=== PATIENT | female | born 1950 | race Caucasian/White ===

== ENCOUNTER 2016-09-22 02:49 | Inpatient (IN) | payer OTHER ==
[~2016-09-22] VITALS: Ht 160 cm; Wt 58.2 kg
[2016-09-22] MEDS ORDERED: VENLAFAXINE HC150 M1 PO (02:51)
[2016-09-22] MEDS ORDERED: ATORVASTATIN CA40 MG PO (02:52)
[2016-09-22] MEDS ORDERED: VERAPAMIL HCL240 MG PO (02:52)
[2016-09-22] MEDS ORDERED: MONTELUKAST SOD10 MG PO (02:52)
[2016-09-22] MEDS ORDERED: BACLOFEN10 MG PO (02:52)
[2016-09-22 03:22] LABS: BASOPHIL COUNT 0.1 K/uL (0-0.1); EOSINOPHIL (%) 1.9 % (0-5); EOSINOPHIL COUNT 0.2 K/uL (0-0.3); IMMATURE GRANULOCYTE (%) 0.4 % (0.0-0.7); INSTRUMENT ABS NEUTROPHIL CT 5.1 K/uL; LYMPHOCYTE COUNT 1.8 K/uL (1.0-2.8); MCH 28.8 PG (29.0-34.0); MCHC 32.1 G/DL (30.0-36.0); MCV 89.9 FL (83-99); MEAN PLAT.VOLUME 9.4 uM^3 (9.5-12.4); MONOCYTE (%) 8.5 % (3-12); MONOCYTE COUNT 0.7 K/uL (0-0.8); NEUTROPHIL (%) 65.7 % (45-76); NEUTROPHIL COUNT 5.1 K/uL (1.8-6.4); PLATELET COUNT 326 K/uL (156-360); RBC DIS.WIDTH-SD 42.7 % (39-53); RED BLOOD COUNT 4.34 M/uL (3.80-5.20); WHITE BLOOD COUNT 7.7 K/uL (4.1-10.2)
[2016-09-22 03:37] LABS: CHLORIDE 107 mEq/L (99-109); POTASSIUM 4.7 mEq/L (3.7-5.4); SODIUM 138 mEq/L (136-147)
[2016-09-22 03:39] LABS: GLUCOSE 106 mg/dL (70-99)
[2016-09-22 03:40] LABS: ANION GAP 9 MEQ/L (2-14)
[2016-09-22 03:42] LABS: GFR ESTIMATE (CALCULATED) > 59 mL/min/
[2016-09-22 03:43] LABS: UREA NITROGEN (BUN) 19 mg/dL (9-23)
[2016-09-22 07:36] LABS: ADD MIUA? YES; BILIRUBIN NEGATIVE; BLOOD SMALL; COLOR YELLOW ((YELLOW)); GLUCOSE (STRIP) NEGATIVE; KETONES NEGATIVE; LEUKOCYTES NEGATIVE; NITRITE POSITIVE; PROTEIN (STRIP) NEGATIVE; SPECIFIC GRAVITY 1.004 (1.000-1.030); UROBILINOGEN 0.2 MG/DL (0.2-1.0)
[2016-09-22] MEDS ORDERED: AMPHETAMINE SAL20 MG PO (07:44)
[2016-09-22] MEDS ORDERED: PROTONIX40 MG PO (07:45)
[2016-09-22] MEDS ORDERED: OXYCODONE-APAP1 EACH PO (07:45)
[2016-09-22 07:46] LABS: BACTERIA 1+ /HPF; EPITHELIAL CELLS RARE /HPF; MUCUS NONE SEEN /LPF; RED BLOOD CELLS 0-5 /HPF (0-5); UCUL ADDED? NO; WHITE BLOOD CELLS 0-5 /HPF (0-5)
[2016-09-22 08:36] VITALS: BP 113/55
[2016-09-22 11:45] VITALS: BP 101/55
[2016-09-22 16:39] VITALS: BP 108/51
[2016-09-22 21:49] VITALS: BP 119/57
[2016-09-22 23:26] VITALS: BP 121/58
[2016-09-23 04:24] VITALS: BP 145/65
[2016-09-23 06:30] LABS: HEMATOCRIT 32.8 % (36.0-46.0); MCH 29.4 PG (29.0-34.0); MCV 91.9 FL (83-99); MEAN PLAT.VOLUME 9.8 uM^3 (9.5-12.4); PLATELET COUNT 245 K/uL (156-360); RBC DIS.WIDTH-CV 13.2 % (11.8-14.6); RBC DIS.WIDTH-SD 44.6 % (39-53); RED BLOOD COUNT 3.57 M/uL (3.80-5.20); WHITE BLOOD COUNT 6.8 K/uL (4.1-10.2)
[2016-09-23 06:45] LABS: ALKALINE PHOSPHATASE 83 IU/L (3-129); ANION GAP 8 MEQ/L (2-14); CHLORIDE 102 MEQ/L (99-109); GFR ESTIMATE (CALCULATED) > 59 mL/min/; GLUCOSE 136 mg/dL (70-99); POTASSIUM 4.3 MEQ/L (3.7-5.4); SAMPLE HEMOLYSIS CHECK 0; SAMPLE ICTERIC CHECK 0; SAMPLE LIPEMIA CHECK 0; SODIUM 136 MEQ/L (136-147); TOTAL BILIRUBIN 0.5 MG/DL (0.0-1.0); UREA NITROGEN (BUN) 14 mg/dL (9-23)
[2016-09-23 08:10] VITALS: BP 126/65
[2016-09-23 12:20] VITALS: BP 116/59
[2016-09-23 16:35] VITALS: BP 117/58
[2016-09-23 20:13] VITALS: BP 139/62
[2016-09-24 00:14] VITALS: BP 117/57
[2016-09-24 04:25] VITALS: BP 117/56
[2016-09-24 05:29] LABS: HEMATOCRIT 32.6 % (36.0-46.0); MCV 90.1 FL (83-99)
[2016-09-24 08:12] VITALS: BP 120/58
[2016-09-24 16:00] VITALS: BP 132/57
[2016-09-24 23:59] VITALS: BP 119/57
[2016-09-25 01:37] VITALS: BP 120/72
[2016-09-25 08:39] VITALS: BP 141/66
[2016-09-25 17:52] VITALS: BP 106/53
[2016-09-25 23:43] VITALS: BP 106/55
[2016-09-26 07:35] VITALS: BP 120/59
[2016-09-26] MEDS ORDERED: ZOLPIDEM TARTRAT5 MG PO (12:14)
[2016-09-26] MEDS ORDERED: NICOTINE PATCH1 EAC2 TD (12:14)
[2016-09-26] MEDS ORDERED: THERAGRAN1 TABLET PO (12:14)
[2016-09-26] MEDS ORDERED: VITAMIN D-32000 UNI2 PO (12:14)
[2016-09-26] MEDS ORDERED: BENADRYL25 MG PO (12:14)
[2016-09-26] MEDS ORDERED: OXYCODONE-APAP1 EACH PO (12:15)
[2016-09-26] MEDS ORDERED: ENULOSE10 GM/15 M PO (12:19)
[2016-09-26] MEDS ORDERED: DOCUSATE SODIU100 MG PO (12:19)
[2016-09-26 15:52] VITALS: BP 133/73
== END 2016-09-26 17:35 | DRG 563 ==
LOC: EME 02:49 → 3EAST 06:10 → EDOF 06:10 → 3EAST 08:11
PROVIDERS: Emergency Medicine; Internal Medicine; Orthopaedic Surgery Sports Medicine
DX: S82.871A Displaced pilon fracture of right tibia, initial encounter for closed fracture (principal); S82.461A Displaced segmental fracture of shaft of right fibula, initial encounter for closed fracture; J44.9 Chronic obstructive pulmonary disease, unspecified; G35 Multiple sclerosis; W01.0XXA Fall on same level from slipping, tripping and stumbling without subsequent striking against object, initial encounter; Y92.012 Bathroom of single-family (private) house as the place of occurrence of the external cause; I10 Essential (primary) hypertension; J32.9 Chronic sinusitis, unspecified; R53.1 Weakness; M25.551 Pain in right hip; F17.218 Nicotine dependence, cigarettes, with other nicotine-induced disorders; J30.9 Allergic rhinitis, unspecified; K21.9 Gastro-esophageal reflux disease without esophagitis; E53.8 Deficiency of other specified B group vitamins; F41.9 Anxiety disorder, unspecified; F32.9 Major depressive disorder, single episode, unspecified; G89.29 Other chronic pain; M54.5 Low back pain; M19.90 Unspecified osteoarthritis, unspecified site; N39.0 Urinary tract infection, site not specified; M81.0 Age-related osteoporosis without current pathological fracture; S49.91XA Unspecified injury of right shoulder and upper arm, initial encounter; R00.0 Tachycardia, unspecified
CPT/HCPCS: 71010; 73522; 73590; 73600; 73610; 73700; 76000; 80048; 80053; 81003; 82306; 85014; 85018; 85025; 85027; 86900; 86901; 93005; 97530 GP; 99281; 99285; J0690; J1650; J2250; J2270; J2405; J3010; J7030

== ENCOUNTER 2017-08-12 16:15 | Inpatient (IN) | payer OTHER ==
[~2017-08-12] VITALS: Ht 157.5 cm; Wt 57.2 kg
[~2017-08-12 16:15] MED LIST: AMPHETAMINE SAL20 MG PO; ATORVASTATIN CA40 MG PO; BACLOFEN10 MG PO; BENADRYL25 MG PO; DOCUSATE SODIU100 MG PO; ENULOSE10 GM/15 M PO; MONTELUKAST SOD10 MG PO; NICOTINE PATCH1 EAC2 TD; OXYCODONE-APAP1 EACH PO; PROTONIX40 MG PO; THERAGRAN1 TABLET PO; VENLAFAXINE HC150 M1 PO; VERAPAMIL HCL240 MG PO; VITAMIN D-32000 UNI2 PO; ZOLPIDEM TARTRAT5 MG PO
[2017-08-12 17:13] LABS: HEMATOCRIT 36.8 % (36.0-46.0); HEMOGLOBIN 11.9 G/DL (11.9-15.5); MCH 26.4 PG (29.0-34.0); MCHC 32.3 G/DL (30.0-36.0); MCV 81.8 FL (83-99); PLATELET COUNT 347 K/uL (156-360); RBC DIS.WIDTH-CV 14.9 % (11.8-14.6); RBC DIS.WIDTH-SD 44.2 % (39-53); WHITE BLOOD COUNT 11.1 K/uL (4.1-10.2)
[2017-08-12 17:22] LABS: CHLORIDE 105 mEq/L (99-109); POTASSIUM 4.6 mEq/L (3.7-5.4); SODIUM 140 mEq/L (136-147)
[2017-08-12 17:24] LABS: GLUCOSE 150 mg/dL (70-99)
[2017-08-12 17:27] LABS: CREATININE 0.8 mg/dL (0.6-1.3); GFR ESTIMATE (CALCULATED) > 59 mL/min/
[2017-08-12 17:28] LABS: UREA NITROGEN (BUN) 34 mg/dL (9-23)
[2017-08-12 20:51] LABS: APPEARANCE SL.HAZY ((CLEAR)); BILIRUBIN NEGATIVE; BLOOD MODERATE; COLOR YELLOW ((YELLOW)); GLUCOSE (STRIP) NEGATIVE; KETONES 20; LEUKOCYTES NEGATIVE; NITRITE NEGATIVE; PROTEIN (STRIP) 30; SPECIFIC GRAVITY 1.028 (1.000-1.030); UROBILINOGEN 0.2 MG/DL (0.2-1.0)
[2017-08-12 21:14] LABS: BACTERIA 4+ /HPF; EPITHELIAL CELLS 1+ /HPF; MUCUS NONE SEEN /LPF; RED BLOOD CELLS 0-5 /HPF (0-5); UCUL ADDED? YES; WHITE BLOOD CELLS 0-5 /HPF (0-5)
[2017-08-12 23:37] VITALS: BP 155/69
[2017-08-13] VITALS (8 sets, daily range): BP systolic 137–181; BP diastolic 62–76
[2017-08-14 07:20] VITALS: BP 145/70
[2017-08-14 16:00] VITALS: BP 126/58
[2017-08-14 22:30] VITALS: BP 130/88
[2017-08-15 04:20] VITALS: BP 122/74
[2017-08-15 06:55] VITALS: BP 96/51
[2017-08-15 10:13] LABS: HEMATOCRIT 31.7 % (36.0-46.0); HEMOGLOBIN 10.2 G/DL (11.9-15.5); MCH 26.9 PG (29.0-34.0); MCHC 32.2 G/DL (30.0-36.0); MCV 83.6 FL (83-99); RBC DIS.WIDTH-CV 15.5 % (11.8-14.6); RBC DIS.WIDTH-SD 46.7 % (39-53); RED BLOOD COUNT 3.79 M/uL (3.80-5.20); WHITE BLOOD COUNT 9.6 K/uL (4.1-10.2)
[2017-08-15 10:22] LABS: ALBUMIN 3.3 G/DL (3.2-4.8); ALKALINE PHOSPHATASE 161 IU/L (3-129); ALT (GPT) 15 IU/L (3-49); AST (GOT) 26 IU/L (2-34); CHLORIDE 102 MEQ/L (99-109); CREATININE 0.8 MG/DL (0.6-1.3); GFR ESTIMATE (CALCULATED) > 59 mL/min/; GLUCOSE 154 mg/dL (70-99); TOTAL BILIRUBIN 0.7 MG/DL (0.0-1.0); TOTAL PROTEIN 5.9 G/DL (6.4-8.3); UREA NITROGEN (BUN) 24 mg/dL (9-23)
[2017-08-15 10:23] LABS: PLAT.SUFFICIENCY ADEQUATE; POTASSIUM 3.2 MEQ/L (3.7-5.4); SODIUM 131 MEQ/L (136-147)
[2017-08-15 11:01] LABS: PLATELET COUNT 242 K/uL (156-360)
[2017-08-15 11:42] VITALS: BP 110/65
[2017-08-15 14:40] VITALS: BP 130/82
[2017-08-15 15:19] VITALS: BP 132/65
[2017-08-16 00:30] VITALS: BP 126/58
[2017-08-16 06:59] VITALS: BP 140/75
[2017-08-16 07:06] LABS: HEMATOCRIT 29.5 % (36.0-46.0); HEMOGLOBIN 9.5 G/DL (11.9-15.5); MCH 26.6 PG (29.0-34.0); MCHC 32.2 G/DL (30.0-36.0); MCV 82.6 FL (83-99); PLATELET COUNT 229 K/uL (156-360); RBC DIS.WIDTH-CV 15.5 % (11.8-14.6); RBC DIS.WIDTH-SD 46.1 % (39-53); RED BLOOD COUNT 3.57 M/uL (3.80-5.20); WHITE BLOOD COUNT 6.3 K/uL (4.1-10.2)
[2017-08-16 07:25] LABS: CHLORIDE 107 MEQ/L (99-109); CREATININE 0.6 MG/DL (0.6-1.3); GFR ESTIMATE (CALCULATED) > 59 mL/min/; GLUCOSE 135 mg/dL (70-99); POTASSIUM 3.5 MEQ/L (3.7-5.4); SODIUM 137 MEQ/L (136-147); UREA NITROGEN (BUN) 15 mg/dL (9-23)
[2017-08-16 07:26] LABS: ALBUMIN 2.8 G/DL (3.2-4.8); ALKALINE PHOSPHATASE 198 IU/L (3-129); ALT (GPT) 16 IU/L (3-49); AST (GOT) 24 IU/L (2-34); CHLORIDE 107 MEQ/L (99-109); CREATININE 0.6 MG/DL (0.6-1.3); GFR ESTIMATE (CALCULATED) > 59 mL/min/; GLUCOSE 136 mg/dL (70-99); POTASSIUM 3.5 MEQ/L (3.7-5.4); SODIUM 136 MEQ/L (136-147); TOTAL BILIRUBIN 0.6 MG/DL (0.0-1.0); TOTAL PROTEIN 5.2 G/DL (6.4-8.3); UREA NITROGEN (BUN) 16 mg/dL (9-23)
[2017-08-16 15:33] VITALS: BP 175/82
[2017-08-16 23:49] VITALS: BP 160/77
[2017-08-17 07:25] VITALS: BP 176/77
[2017-08-17 11:30] VITALS: BP 135/67
[2017-08-17 12:08] LABS: BASE EXCESS -0.5 mEq/L (-3 to +3); BICARBONATE 21.5 mEq/L (22-26); CARBOXY HGB 2.5 % (0-5); METHEMOGLOBIN 1.3 % (0-1.5); PCO2 27 mm Hg (35-45); PO2 69 mm Hg (80-100); pH 7.51 (7.35-7.45)
[2017-08-17 12:09] LABS: SITE LR
[2017-08-17 12:10] LABS: COMMENTS - BLOOD GASES A+C+; FI02 0.21 %
[2017-08-17 15:32] VITALS: BP 138/63
[2017-08-17 23:34] VITALS: BP 131/66
[2017-08-18 07:45] LABS: HEMATOCRIT 31.9 % (36.0-46.0); HEMOGLOBIN 10.2 G/DL (11.9-15.5); MCV 81.4 FL (83-99); RBC DIS.WIDTH-CV 15.5 % (11.8-14.6); RBC DIS.WIDTH-SD 45.3 % (39-53); RED BLOOD COUNT 3.92 M/uL (3.80-5.20); WHITE BLOOD COUNT 6.9 K/uL (4.1-10.2)
[2017-08-18 07:53] LABS: PLATELET COUNT 310 K/uL (156-360)
[2017-08-18 08:14] VITALS: BP 196/90
[2017-08-18 08:17] LABS: ALBUMIN 2.9 G/DL (3.2-4.8); ALT (GPT) 26 IU/L (3-49); AST (GOT) 29 IU/L (2-34); CHLORIDE 104 MEQ/L (99-109); CREATININE 0.4 MG/DL (0.6-1.3); GFR ESTIMATE (CALCULATED) > 59 mL/min/; GLUCOSE 130 mg/dL (70-99); MAGNESIUM 1.8 mg/dl (1.3-2.7); SODIUM 137 MEQ/L (136-147); TOTAL BILIRUBIN 0.5 MG/DL (0.0-1.0); TOTAL PROTEIN 5.5 G/DL (6.4-8.3); UREA NITROGEN (BUN) 8 mg/dL (9-23)
[2017-08-18 08:34] LABS: ALKALINE PHOSPHATASE 333 IU/L (3-129); POTASSIUM 4.3 MEQ/L (3.7-5.4)
[2017-08-18 11:00] VITALS: BP 126/61
[2017-08-18] MEDS ORDERED: ENDOCET 5-3251 EACH PO (14:31)
[2017-08-18] MEDS ORDERED: DUONEB 2.5-0.5 M3 ML AEROSOL (14:31)
== END 2017-08-18 17:00 | DRG 948 ==
LOC: EME 16:15 → EDOF 22:00 → 2EASTP 22:00 → ENRESERV 22:05 → 2EASTP 23:28
PROVIDERS: Emergency Medicine Emergency Medical Services; Family Medicine; Internal Medicine
DX: R41.0 Disorientation, unspecified (principal); N30.90 Cystitis, unspecified without hematuria; G35 Multiple sclerosis; F32.9 Major depressive disorder, single episode, unspecified; I10 Essential (primary) hypertension; F17.200 Nicotine dependence, unspecified, uncomplicated; M25.551 Pain in right hip; Z87.81 Personal history of (healed) traumatic fracture; R29.6 Repeated falls; J44.9 Chronic obstructive pulmonary disease, unspecified; E78.5 Hyperlipidemia, unspecified; K21.9 Gastro-esophageal reflux disease without esophagitis; M19.90 Unspecified osteoarthritis, unspecified site; E87.1 Hypo-osmolality and hyponatremia; G89.4 Chronic pain syndrome; E87.6 Hypokalemia
CPT/HCPCS: 36600; 70450; 71045; 71046; 72170; 72192; 73552; 73560; 80048; 80053; 81003; 82803; 83036; 83605; 83735; 85027; 87040; 87077; 87086 GA; 87186; 94799; 97530 GP; 99202; 99281; 99285; J0692; J0696; J1630; J1644; J2250; J2310; J3010